=== PATIENT | male | born 1950 | race Caucasian/White ===

== ENCOUNTER 2016-11-28 11:49 | Emergency (ER) | payer OTHER ==
[~2016-11-28] VITALS: Ht 170.2 cm; Wt 90.0 kg
[~2016-11-28 11:49] MED LIST: CELE40TA PO; CLOP75 PO; CYAN1000P IM; DILA100C PO; FLUN25I; PHEN30TA32 PO; PRAZ1 PO; ZOCO80TA PO; ZONI100C2 PO
[2016-11-28 12:10] VITALS: BP 148/70; PULSE 60; RESP 20; TEMP 98.2; O2SAT 94
--- NOTE | 2016-11-28 12:23 | PD ---
HPI Chief Complaint: headache Time Seen by Provider: 11:53 Travel History International Travel<30 days: No Contact w/Intl Traveler<30days: No History of Present Illness HPI This is a 66-year-old male who presents to the emergency department with 1 week of headache described as throbbing, constant, moderate severity associated with nausea. He denies any numbness or weakness. His thought he seemed more confused today and [facility] and they sent him here to the emergency department. They both feel pretty confident that his symptoms are due to him being off of his Effexor for 2 weeks. He was recently, about 3 months ago, diagnosed with a stroke in the left side and he follows with a neurologist and takes full dose aspirin. He also has a history of traumatic brain injury. PFSH Past Medical History Blood Disorders: No Cancer: No Cardiovascular Problems: No Cerebrovascular Accident: Yes Endocrine: No Genitourinary: No Immune Disorder: No Musculoskeletal: No Neurologic: Yes Psychiatric: No Reproductive: No Respiratory: No Seizures: Yes Past Surgical History AICD: No Arteriovenous Shunt: No Insulin Pump: No Joint Replacement: Yes (LEFT HIP) Pacemaker: No Social History Alcohol Use: Yes (OCCASSIONALLY) Tobacco Use: Yes (LAST USED 04/04/07) Substance Use: No Allergies-Medications (Allergen,Severity, Reaction): Coded Allergies: Contrast Media (Verified Allergy, Severe, 08/19/07) Demerol (Verified Allergy, Severe, 08/19/07) Lamotrigine (Verified Allergy, Severe, 08/14/07) Depakote (Verified Allergy, Mild, 08/19/07) Gabapentin (Verified Allergy, Unknown, 11/28/16) Metoprolol (Verified Allergy, Unknown, 11/28/16) Reported Meds & Prescriptions Reported Meds & Active Scripts Active Reported Effexor XR 24 HR (Venlafaxine HCl) 150 Mg Cap 150 Mg PO HS Spiriva Handihaler (Tiotropium Inh) 18 Mcg Cap 18 Mcg INH DAILY 1 capsule = 18 mcg Crestor (Rosuvastatin Calcium) 40 Mg Tab 40 Mg PO HS Dilantin (Phenytoin Extended) 100 Mg Cap 400 Mg PO DAILY Slo-Niacin (Niacin) 500 Mg Tab 500 Mg PO DAILY Lisinopril 10 Mg Tab 5 Mg PO DAILY Glipizide 5 Mg Tab 2.5 Mg PO BIDAC PRN Take 30 minutes before a meal Tiazac (Diltiazem ER 24 HR) 120 Mg Caper 120 Mg PO DAILY Vitamin B12 (Cyanocobalamin) 500 Mcg Tab 500 Mcg PO DAILY Aspirin 325 Mg Tab 325 Mg PO DAILY Ventolin Hfa 18 GM Inh (Albuterol Sulfate) 90 Mcg/Act Aer 2 Puff INH Q4H PRN Review of Systems Except as stated in HPI: all other systems reviewed are Neg Physical Exam Narrative GENERAL:Well appearing, no acute distress SKIN: Focused skin assessment warm and dry. HEAD: Atraumatic. Normocephalic. EYES: Pupils equal and round. No injection or drainage. ENT: Moist mucous membranes NECK: Trachea midline. CARDIOVASCULAR: Regular rate and rhythm. No murmur appreciated. RESPIRATORY: Clear to auscultation. Breath sounds equal bilaterally. GASTROINTESTINAL: Abdomen soft, non-tender, nondistended. MUSCULOSKELETAL: No obvious deformities. NEUROLOGICAL: Awake and alert. No obvious cranial nerve deficits. No dysarthria or aphasia. No upper or lower extremity drift. No upper extremity ataxia. PSYCHIATRIC: Appropriate mood and affect; insight and judgment normal. Data Data Last Documented VS Vital Signs Date Time Temp Pulse Resp B/P Pulse Ox O2 Delivery O2 Flow Rate FiO2 11/28/16 12:10 98.2 60 20 148/[address] Brain W/O Iv Contrast(Rout) (11/28/16 ) Sodium Chlor 0.9% 1000 Ml Inj (Ns 1000 M (11/28/16 12:30) Metoclopramide Inj (Reglan Inj) (11/28/16 12:30) Diphenhydramine Inj (Benadryl Inj) (11/28/16 12:30) [facility] Medical Decision Making Medical Screen Exam Complete: Yes Emergency Medical Condition: Yes Interpretation(s) afebrile, no tachycardia, hypertensive CT head: Lacunar infarct on the left Differential Diagnosis Subarachnoid hemorrhage, subdural hematoma, migraine headache, Ischemic stroke, hemorrhagic stroke Narrative Course This is a 66-year-old male who presents to the emergency department with headache and some confusion earlier this morning. He was placed on a monitor and an IV was established. He has a normal neurologic exam. CT demonstrates a left lacunar infarct. In discussing with the family they both think he's been diagnosed with this before and this is an old finding. I offered them admission for neurology consultation in light of the patient's confusion this morning as he could be having an acute stroke but the patient says he feels completely back to normal and he doesn't want to be admitted. He has an outpatient appointment with neurology already scheduled. He is on full dose aspirin and in light of his history of traumatic brain injury, he avoids blood thinners. I think this is reasonable given he has a normal neurologic exam. Patient was discharged home and asked to follow up with his primary care physician and his neurologist. Diagnosis Primary Impression: Headache Qualified Code: R51 - Acute nonintractable headache, unspecified headache type Additional Impression: Lacunar infarct, acute Patient Instructions: General Instructions Additional Instructions: If you develop severe worsening headache, persistent vomiting, numbness, weakness, difficulty walking or difficulty talking return to the emergency department immediately. Follow-up with your neurologist as scheduled. Med/Other Pt SpecificInfo: No Change to Meds Disposition: 01 DISCHARGE HOME Condition: Stable Zabrina Mathews MD November 28, 2016 12:13
[2016-11-28] MEDS ORDERED: METOCLOPRAMIDE HCL 10 MG/2 ML VIAL IV PUSH ONE (12:30)
[2016-11-28] MEDS ORDERED: diphenhydrAMINE HCL 50 MG/ML VIAL IV PUSH ONE (12:30)
[2016-11-28] MEDS ORDERED: SODIUM CHLOR 0.9% 1000 ML INJ 1,000 ML IV ONE (12:30)
[2016-11-28] MEDS ORDERED: ROSU40 PO (12:44)
[2016-11-28] MEDS ORDERED: VENTAER INH (12:44)
[2016-11-28] MEDS ORDERED: ASPI325T PO (12:44)
[2016-11-28] MEDS ORDERED: VITA500T49 PO (12:44)
[2016-11-28] MEDS ORDERED: SPIRCAP INH (12:44)
[2016-11-28] MEDS ORDERED: EFFE150C PO (12:44)
[2016-11-28] MEDS ORDERED: GLIP5TAB8 PO (12:44)
[2016-11-28] MEDS ORDERED: DILA100C PO (12:44)
[2016-11-28] MEDS ORDERED: DILT-4 PO (12:44)
[2016-11-28] MEDS ORDERED: SLO-500T PO (12:44)
[2016-11-28] MEDS ORDERED: LISI10TA3 PO (12:44)
--- NOTE | 2016-11-28 13:50 | RADRPT ---
EXAM DATE/TIME: 11/28/2016 13:10 [facility] COMPARISON: No previous studies available for comparison. INDICATIONS : Headache RADIATION DOSE: 56.35 CTDIvol (mGy) MEDICAL HISTORY : Cerebrovascular disease. Hypertension. Seizures. SURGICAL HISTORY : Craniotomy. ENCOUNTER: Initial ACUITY: 1 day PAIN SCALE: 7/10 LOCATION: Bilateral cranial TECHNIQUE: Multiple contiguous axial images were obtained of the head. Using automated exposure control and adj ustment of the mA and/or kV according to patient size, radiation dose was kept as low as reasonably a chievable to obtain optimal diagnostic quality images. FINDINGS: Large lacunar infarct is seen in the basal ganglia on the left. Right hemisphere is unremarkable. Posterior fossa appears normal. There are no extra axial fluid collections appreciate d. CONCLUSION: Lacunar infarct on the left, otherwise negative in the interval. Higinio Awad MD FACR on November 28, 2016 at 13:40 Board Certified Radiologist. This report was verified electronically.
== END 2016-11-28 14:58 | disposition home or self-care (01) ==
LOC: NEPE 11:49
DX: R51 Headache (principal); I63.8 Other cerebral infarction; R11.0 Nausea; R41.0 Disorientation, unspecified; Z79.82 Long term (current) use of aspirin; Z86.79 Personal history of other diseases of the circulatory system; Z87.820 Personal history of traumatic brain injury; Z86.69 Personal history of other diseases of the nervous system and sense organs; Z87.891 Personal history of nicotine dependence
CPT/HCPCS: 70450; 96361; 96374; 96375; 99284; J1200; J2765; J7030